=== PATIENT | female | born 1975 | race Caucasian/White ===

== ENCOUNTER 2018-04-18 23:10 | Emergency (ER) | payer OTHER ==
[~2018-04-18] VITALS: Ht 152.4 cm; Wt 68.2 kg
[2018-04-18] MEDS ORDERED: ONDANSETRON ODT 4 MG ONE (23:39)
[2018-04-18] MEDS ORDERED: FAMOTIDINE 20 MG/2 ML ONE (23:39)
[2018-04-19] LABS: BASOPHILS # (AUTO) 0.02 x10^3/uL (0-0.1); BASOPHILS % (AUTO) 0 % (0-1); EOSINOPHILS % (AUTO) 0 % (1-7); LYMPHOCYTES # (AUTO) 0.44 x10^3/uL (1-3.4); LYMPHOCYTES % (AUTO) 3 % (22-44); MD NO; MEAN CORPUSCULAR HEMOGLOBIN 28.6 pg (27.0-34.8); MEAN CORPUSCULAR HGB CONC 33.4 g/dL (32.4-35.8); MEAN CORPUSCULAR VOLUME 85.7 fL (80-100); MEAN PLATELET VOLUME 9.5 fL (7.4-10.4); MONOCYTES # (AUTO) 0.45 x10^3/uL (0.2-0.8); MONOCYTES % (AUTO) 4 % (2-9); NEUTROPHILS # (AUTO) 12.23 x10^3/uL (1.8-6.8); NEUTROPHILS % (AUTO) 93 % (42-75); PLATELET COUNT 234 x10^3/uL (130-400); RED BLOOD COUNT 4.55 x10^6/uL (3.82-5.3); RED CELL DISTRIBUTION WIDTH 14.5 % (9.6-15.2)
[2018-04-19] MEDS ORDERED: FAMOTIDINE 20 MG/2 ML IVP ONE
[2018-04-19] MEDS ORDERED: SODIUM CHLORIDE 0.9% 1,000ML IVBOLUS ONE
[2018-04-19] MEDS ORDERED: ONDANSETRON ODT 4 MG PO ONE
[2018-04-19 00:13] LABS: ALANINE AMINOTRANSFERASE 23 U/L (12-78); ALBUMIN 4.1 g/dL (3.4-5.0); ANION GAP 9 mmol/L (5-15); CALCIUM 8.9 mg/dL (8.5-10.1); CHLORIDE 102 mmol/L (98-107); CREATININE 0.86 mg/dL (0.55-1.02)
[2018-04-19 00:18] LABS: ALKALINE PHOSPHATASE 82 U/L (45-117); BILIRUBIN,TOTAL 0.3 mg/dL (0.2-1.0); TOTAL PROTEIN 8.4 g/dL (6.4-8.2)
[2018-04-19 00:38] LABS: MICROSCOPIC NOT IND
[2018-04-19 00:39] LABS: CULTURE INDICATED? NO
[2018-04-19] MEDS ORDERED: METOCLOPRAMIDE 5 MG/ML, 2ML IVPush ONE (01:00)
[2018-04-19] MEDS ORDERED: PROMETHAZINE 25 MG/ML, 1ML IM ONE (01:00)
[2018-04-19] MEDS ORDERED: METOCLOPRAMIDE 5 MG/ML, 2ML ONE (01:02)
[2018-04-19] MEDS ORDERED: ACETAMINOPHEN 325 MG TABLET ONE (01:14)
[2018-04-19 01:17] VITALS: BP 141/86
[2018-04-19] MEDS ORDERED: ACETAMINOPHEN 325 MG TABLET PO ONE (01:30)
== END 2018-04-19 01:26 | disposition home or self-care (01) ==
LOC: ED 23:59
DX: K29.00 Acute gastritis without bleeding (principal)
CPT/HCPCS: 36415; 80053; 81003; 83690; 84703; 85025; 96361; 96374; 96375; 99284; J2765; J7030; Q0162; S0028

== ENCOUNTER 2020-10-03 11:02 | Outpatient (CLI) | payer OTHER ==
[2020-10-03] MEDS ORDERED: GARL1TAB2 PO (12:42)
[2020-10-03] MEDS ORDERED: ASCO1CAP2 PO (12:42)
[2020-10-03] MEDS ORDERED: CYAN-27 PO (12:42)
[2020-10-03] MEDS ORDERED: CALC500T93 PO (12:42)
[2020-10-03] MEDS ORDERED: TURM500C4 PO (12:42)
[2020-10-03] MEDS ORDERED: ACET-1600 PO (12:42)
[2020-10-03] MEDS ORDERED: MULT-449 PO (12:42)
== END 2020-10-03 23:59 | disposition home or self-care (01) ==
LOC: STAR 11:02
PROVIDERS: ATTEND Orthopaedic Surgery
DX: Z20.822 Contact with and (suspected) exposure to COVID-19 (principal); S83.242A Other tear of medial meniscus, current injury, left knee, initial encounter; M25.562 Pain in left knee; X58.XXXA Exposure to other specified factors, initial encounter; Y93.89 Activity, other specified; Y92.89 Other specified places as the place of occurrence of the external cause; Y99.8 Other external cause status
CPT/HCPCS: U0003

== ENCOUNTER 2020-10-07 12:01 | Day surgery (SDC) | payer OTHER ==
[~2020-10-07] VITALS: Ht 152.4 cm; Wt 75.5 kg
[~2020-10-07 12:01] MED LIST: ACET-1600 PO; ASCO1CAP2 PO; CALC500T93 PO; CYAN-27 PO; GARL1TAB2 PO; MULT-449 PO; TURM500C4 PO
[2020-10-07] MEDS ORDERED: CHLORHEXIDINE 15 ML UDC ONE (12:40)
[2020-10-07 12:41] LABS: HCG UR SG 1.007 (1.003-1.030)
[2020-10-07] MEDS ORDERED: CHLORHEXIDINE 15 ML UDC MM ONE (13:00)
[2020-10-07] MEDS ORDERED: LACTATED RINGERS 1,000 ML IV SCH (13:00)
[2020-10-07] MEDS ORDERED: LIDOCAINE/PF 1%, 30ML ONE (14:24)
[2020-10-07] MEDS ORDERED: morphine SULFATE/PF 1 MG/ML, 10ML ONE (14:24)
[2020-10-07] MEDS ORDERED: BUPIVACAINE/PF 0.25% ONE (14:24)
[2020-10-07] MEDS ORDERED: EPINEPHRINE 1 MG/ML, 1ML ONE (14:25)
[2020-10-07] MEDS ORDERED: HYDROmorphone 2 MG/ML, 1ML ONE (15:50)
[2020-10-07] MEDS ORDERED: MIDAZOLAM 1 MG/ML, 2ML ONE (15:51)
[2020-10-07] MEDS ORDERED: FENTANYL PF 100 MCG/2ML ONE ×3 (15:51→18:00)
[2020-10-07] MEDS ORDERED: CEFAZOLIN 1,000 MG ONE (15:56)
[2020-10-07] MEDS ORDERED: PROPOFOL 10 MG/ML, 20ML ONE (15:56)
[2020-10-07] MEDS ORDERED: ONDANSETRON 2MG/ML, 2ML ONE (15:56)
[2020-10-07] MEDS ORDERED: HALOPERIDOL 5 MG/ML IV PRN (16:30)
[2020-10-07] MEDS ORDERED: DIAZEPAM 5 MG/ML, 2ML IVPush PRN (16:30)
[2020-10-07] MEDS ORDERED: EPHEDRINE 50 MG/ML, 1ML IVPush PRN (16:30)
[2020-10-07] MEDS ORDERED: LABETALOL 5MG/ML, 20ML IV PRN (16:30)
[2020-10-07] MEDS ORDERED: hydrALAzine 20 MG/ML, 1ML IV PRN (16:30)
[2020-10-07] MEDS ORDERED: METOPROLOL 1 MG/ML, 5ML IV PRN (16:30)
[2020-10-07] MEDS ORDERED: FENTANYL PF 100 MCG/2ML IV PRN (16:30)
[2020-10-07] MEDS ORDERED: DIPHENHYDRAMINE 50 MG/ML, 1ML IVPush PRN (16:30)
[2020-10-07] MEDS ORDERED: ONDANSETRON 2MG/ML, 2ML IVPush PRN (16:30)
[2020-10-07] MEDS ORDERED: PROMETHAZINE 25 MG/ML, 1ML IVPush PRN (16:30)
[2020-10-07] MEDS ORDERED: OXYcodone 5 MG/5 ML ORAL.SOL UDC PO PRN (16:30)
[2020-10-07] MEDS ORDERED: ACETAMINOPHEN 325 MG TABLET PO PRN ×2 (16:30→20:30)
[2020-10-07] MEDS ORDERED: HYDROmorphone 1 MG/ML, 1ML INJ IVPush PRN (16:30)
[2020-10-07] MEDS ORDERED: KETOROLAC 30 MG/1 ML ONE (16:53)
[2020-10-07] MEDS ORDERED: DEXAMETHASONE 4 MG/ML, 1ML ONE ×2 (16:53)
[2020-10-07] MEDS ORDERED: OXYcodone 5 MG/5 ML ORAL.SOL UDC ONE (18:00)
[2020-10-07] MEDS ORDERED: MEPERIDINE/PF 25MG/ML,1ML ONE (18:04)
[2020-10-07] MEDS ORDERED: MEPERIDINE/PF 25MG/0.5ML IVPush PRN (19:00)
[2020-10-07 19:32] VITALS: BP 112/75
[2020-10-07] MEDS ORDERED: morphine SULFATE 10 MG/ML, 1ML IV PRN (20:00)
[2020-10-07] MEDS ORDERED: OXYcodone/APAP 5/325MG TABLET PO PRN (20:30)
[2020-10-07] MEDS ORDERED: PROMETHAZINE 25 MG/ML, 1ML IM PRN (20:30)
[2020-10-07] MEDS ORDERED: KETOROLAC 30 MG/1 ML IV SCH (20:30)
[2020-10-07] MEDS ORDERED: ONDANSETRON 2MG/ML, 2ML IV PRN (20:30)
[2020-10-07] MEDS ORDERED: OXYC5TAB98 PO (22:25)
[2020-10-07] MEDS ORDERED: NAPR-856 PO (22:26)
[2020-10-07] MEDS ORDERED: ASPI-430 PO (22:27)
[2020-10-07] MEDS ORDERED: ONDA4TAB7 PO (22:28)
== END 2020-10-07 23:48 | disposition home or self-care (01) ==
LOC: OUT 12:01 → 4NE 19:27 → OUT 23:48
PROVIDERS: ATTEND Orthopaedic Surgery
DX: S83.242A Other tear of medial meniscus, current injury, left knee, initial encounter (principal); M94.262 Chondromalacia, left knee; M67.262 Synovial hypertrophy, not elsewhere classified, left lower leg; J45.909 Unspecified asthma, uncomplicated; Z79.1 Long term (current) use of non-steroidal anti-inflammatories (NSAID); Z79.899 Other long term (current) drug therapy; Z88.5 Allergy status to narcotic agent; Z82.3 Family history of stroke; X50.1XXA Overexertion from prolonged static or awkward postures, initial encounter; Y93.02 Activity, running; Y92.59 Other trade areas as the place of occurrence of the external cause; Y99.8 Other external cause status
CPT/HCPCS: 29882; 81025; C1713; J0171; J1100; J1170; J1885; J2250; J2274; J2405; J2550; J3010; J7120; G0378; J0690; J2704